=== PATIENT | female | born 1985 ===

== ENCOUNTER 2025-10-05 09:30 | Emergency (ER) | payer SELFPAY ==
[~2025-10-05] VITALS: Ht 162.6 cm; Wt 90.0 kg
[2025-10-05 09:35] VITALS: O2SAT 100
[2025-10-05 09:39] VITALS: BP 123/74; PULSE 87; RESP 18; TEMP 36.7; O2SAT 100
== END 2025-10-05 14:05 | disposition home or self-care (01) ==
LOC: ER 09:30
DX: M79.661 Pain in right lower leg (principal); J45.909 Unspecified asthma, uncomplicated; Z90.49 Acquired absence of other specified parts of digestive tract
CPT/HCPCS: 93971; 99284